=== PATIENT | female | born 1955 | race Caucasian/White ===

== ENCOUNTER 2017-11-17 06:53 | Emergency (ER) | payer BC ==
[2017-11-17 06:59] VITALS: TEMP 98.6; BMI 26.5
[2017-11-17] MEDS ORDERED: methylPREDNISolone NA SUCC 125 MG/2 ML VIAL IVPUSH ONE (07:03)
[2017-11-17] MEDS ORDERED: FAMOTIDINE 20 MG/50 ML IVPB 20 MG/50 ML MG IVPB ONE ×2 (07:08→07:10)
--- NOTE | 2017-11-17 07:11 | PDOC ---
*Physical Exam - Vital Signs Last Vital Signs Temp Pulse Resp BP Pulse Ox 98.6 F 91 H 16 139/81 100 11/17/17 06:55 11/17/17 06:55 11/17/17 06:55 11/17/17 06:55 11/17/17 06:55 *DC/Admit/Observation/Transfer - Discharge Dispostion Condition at time of disposition: Stable - Referrals - Patient Instructions - Post Discharge Activity
--- NOTE | 2017-11-17 08:13 | PDOC ---
History of Present Illness - General Chief Complaint: Allergic Reaction Stated Complaint: WOKE UP WITH SWOLLEN LIP Time Seen by Provider: 11/17/17 07:08 - History of Present Illness Initial Comments: 11/17/17 08:04 Chief complaint: Swelling of the upper lip History of present illness: Patient awoke this morning at 4 AM, went to the bathroom, did not eat or drink anything or touch any foreign substance, went back to bed. Later woke up with swelling on the right side of the upper lip, which has progressed to involve the entire left side as well. Review of systems: Patient noted no insect bites. She denies touching any chemicals or other foreign substances. She's been taking lisinopril for 15 years without a reaction, and has no new prescription generic or otherwise. She has begun taking several supplements recently including 'gummies' and omega-3, and recently has begun and nasal spray for sinus congestion as prescribed by her physician. She denies any chest tightness, wheezing, or shortness of breath. She denies any irritation in the back of the throat, tongue, or other parts of the mouth or face. She denies any other areas of swelling or rash including the genitals. Past medical history: Mild hypertension unless [place] as noted above. 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 Otherwise negative. Specifically, no history of angioedema or airway problems in relatives Physical exam: Alert oriented well-developed well-nourished no acute distress cheerful and cooperative Afebrile, vital signs normal There is moderate edema of the entire upper lip, localized, and confined to the immediate area. There is no other facial swelling or edema. The posterior pharynx is clear, there is no uvular edema or other sign of angioedema in the oropharynx. Neck is supple without bruit mass or nodes Chest is clear with full breath sounds throughout bilaterally. No wheezes rales or rhonchi CV regular without murmur rub or gallop pulses full and symmetric no JVD or edema no bruits Abdomen soft nontender without mass or organomegaly Skin clear, no rash except for the localized edema described above involving the upper lip, adequate turgor and wet mucous membranes. Impression: The localized edema beginning on the right side of the upper lip and spreading to the left side suggest maybe an insect bite or sting occurring this morning while in bed, and not noticed. There is the possibility that this is a reaction to one of the new [id number] medications that she recently began or to recently administered nasal sprays. It is unlikely that she has developed a reaction to lisinopril after 15 years, especially since the reaction is so localized. There may have been an inadvertent contact reaction Plan: To discontinue nasal sprays and all recently begun medications over-the- counter and otherwise, vitamins and supplements. To continue Benadryl, Pepcid, and short course of steroids. To return immediately if there is any throat irritation, chest tightness or wheezing, abdominal pain, nausea, vomiting. Otherwise to follow-up with primary physician in 24 hours for reevaluation. Fully ambulatory and in no distress, with lip improving at discharge to follow- up as directed. Past History - Past Medical History Allergies/Adverse Reactions: Allergies Allergy/AdvReac Type Severity Reaction Status Date / Time No Known Allergies Allergy Verified 11/17/17 06:54 Home Medications: Ambulatory Orders Lisinopril [Prinivil] 5 mg PO DAILY 11/17/17 COPD: No HTN: Yes - Suicide/Smoking/Psychosocial Hx Smoking History: Never smoked Have you smoked in the past 12 months: No Information on smoking cessation initiated: No Hx Alcohol Use: No Drug/Substance Use Hx: No Substance Use Type: None *Physical Exam - Vital Signs Last Vital Signs Temp Pulse Resp BP Pulse Ox 98.6 F 91 H 16 139/81 100 11/17/17 06:55 11/17/17 06:55 11/17/17 06:55 11/17/17 06:55 11/17/17 06:55 ED Treatment Course - Medications Given in the ED: ED Medications Discontinued Medications Generic Name Dose Route Start Last Admin Trade Name Freq PRN Reason Stop Dose Admin Diphenhydramine HCl 50 mg 11/17/17 07:03 11/17/17 07:16 Benadryl Injection - IVPB 11/17/17 07:04 50 mg ONCE ONE Administration Famotidine/Sodium Chloride 20 mg in 50 mls @ 100 mls/hr 11/17/17 07:10 07:16 Pepcid 20 Mg Premixed Ivpb - IVPB 11/17/17 07:39 100 mls/hr ONCE ONE Administration Methylprednisolone Sodium Succinate 125 mg 11/17/17 07:03 11/17/17 07:16 Solu-Medrol - IVPUSH 11/17/17 07:04 125 mg ONCE ONE Administration *DC/Admit/Observation/Transfer Diagnosis at time of Disposition: Angioedema Qualifiers: Encounter type: initial encounter Qualified Code(s): T78.3XXA - Angioneurotic edema, initial encounter - Discharge Dispostion Disposition: HOME Condition at time of disposition: Improved Decision to Admit order: No - Referrals - Patient Instructions Printed Discharge Instructions: DI for General Allergic Reactions Additional Instructions: Continue cool compresses and medication as directed. Return to ER immediately if there is any swelling or irritation in the back of the throat, chest tightness or wheezing, abdominal pain, nausea, or vomiting. Otherwise the swelling should slowly resolve during the course of the day. Check with your primary physician tomorrow for further evaluation and treatment. Discontinue all medication, [id number] and otherwise, that was recently begun including vitamins, supplements, and nasal spray. When you symptoms resolved, discuss reinitiating substances one at a time to check for sensitivity. - Post Discharge Activity
[2017-11-17 09:22] VITALS: BP 131/76; PULSE 71
== END 2017-11-17 09:23 | disposition home or self-care (01) ==
LOC: FER 06:53
PROC: 3E033GC Introduction of Other Therapeutic Substance into Peripheral Vein, Percutaneous Approach (ICD-10-PCS; principal; 2017-11-17)
DX: X58.XXXA Exposure to other specified factors, initial encounter (principal)
CPT/HCPCS: 99282-25

== ENCOUNTER 2021-04-19 15:23 | Emergency (ER) | payer OTHER, BC ==
[2021-04-19 15:28] VITALS: BP 151/59; PULSE 83; TEMP 98.7; BMI 31.8
[2021-04-19] MEDS ORDERED: LIDOCAINE HCL 1%, 10 MG/ML (20ML VIAL) ONE (16:16)
[2021-04-19] MEDS ORDERED: LIDOCAINE HCL 1%, 10 MG/ML (50 mL VIAL) SQ ONE (16:16)
[2021-04-19] MEDS ORDERED: DIPHTH,PERTUSS(ACELL),TET 0.5 ML DISP.SYRIN IM ONE ×2 (17:00→17:06)
== END 2021-04-19 17:12 | disposition home or self-care (01) ==
LOC: FER 15:23
PROC: 0HQGXZZ Repair Left Hand Skin, External Approach (ICD-10-PCS; principal; 2021-04-19)
PROC: 3E0234Z Introduction of Serum, Toxoid and Vaccine into Muscle, Percutaneous Approach (ICD-10-PCS; 2021-04-19)
DX: S61.211A Laceration without foreign body of left index finger without damage to nail, initial encounter (principal)
CPT/HCPCS: 12001-25; 90471; 90715; 99284-25